=== PATIENT | male | born 1960 | race Caucasian/White ===

== ENCOUNTER → 2016-08-19 | Outpatient (CLI) | payer MEDICARE ==
--- NOTE | 2016-08-19 09:12 | US ---
EXAMINATION TYPE: US kidneys/renal and bladder DATE OF EXAM: 08/19/2016 8:38 AM COMPARISON: CT CLINICAL HISTORY: R31.9 hematuria. 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 Diminutive left kidney. Mild hydronephrosis seen.
--- NOTE | 2016-08-19 09:39 | US ---
EXAMINATION TYPE: US prostate transrectal DATE OF EXAM: 08/19/2016 8:57 AM COMPARISON: NONE CLINICAL HISTORY: N40.1 BPH. BPH This examination was performed using the transrectal probe. EXAM MEASUREMENTS: Gland Size: 4.9 x 2.1 x 4.4cm Volume: 23.5ml Predicted PSA: 2.82 Actual PSA (if available): not available, no PSA written on patient's order, called office, no answer Slightly enlarged, heterogeneous gland without any definite masses seen at this time IMPRESSION: No suspicious prostate lesion identified. Correlate with the actual PSA. Predicted PSA = volume x 0.12 ng/ml Calculated Volume = 0.5236 x L x W x H
[2016-08-19 11:35] LABS: Appearance,Urine Clear (Clear); Bilirubin,Urine Negative (Negative); Glucose,Urine (UA) Negative (Negative); Ketones,Urine Negative (Negative); Leukocyte Esterase,Urine Negative (Negative); Nitrite,Urine Negative (Negative); Protein,Urine Negative (Negative); Specific Gravity,Urine 1.001 (1.001-1.035); UA Billing (MACRO vs. MICRO) CHEM; Urobilinogen,Urine <2.0 mg/dL (<2.0)
== END | disposition home or self-care (01) ==
LOC: EEVIPCON 08:07 → RADUSMAIN 08:07
PROVIDERS: ATTEND Internal Medicine
DX: N13.30 Unspecified hydronephrosis (principal); N27.0 Small kidney, unilateral; N40.1 Benign prostatic hyperplasia with lower urinary tract symptoms; R30.0 Dysuria
CPT/HCPCS: 76770; 76872; 81003

== ENCOUNTER → 2016-11-16 | Outpatient (CLI) | payer MEDICARE ==
[2016-11-16 09:44] LABS: ALT 30 U/L (21-72); AST 23 U/L (17-59); Cholesterol 211 mg/dL (<200); HDL Cholesterol 41 mg/dL (40-60)
== END | disposition home or self-care (01) ==
LOC: LABWHC1 08:47
PROVIDERS: ATTEND Internal Medicine Cardiovascular Disease
DX: E78.2 Mixed hyperlipidemia (principal)
CPT/HCPCS: 36415; 80061; 84450; 84460

== ENCOUNTER → 2017-12-09 | Outpatient (CLI) | payer OTHER ==
--- NOTE | 2017-12-10 19:38 | MR ---
EXAMINATION TYPE: MR thoracic spine wo con DATE OF EXAM: 12/09/2017 COMPARISON: NONE HISTORY: 57-year-old male New pain in thoracic spine TECHNIQUE: Multiplanar, multisequence images of the thoracic spine were obtained without IV contrast. FINDINGS: There is metal hardware artifact relating to T10-T12 posterior and interbody fusion. There is an acce ntuated kyphosis at this level. The spinal canal is completely obscured secondary to these artifacts along these levels. Vertebral body heights are otherwise preserved and alignment is maintained. Mild to moderate degenerative disc disease throughout the mid to lower thoracic spine characterized b y mild disc desiccation and variable mild to moderate disc space narrowing. Small disc protrusions ar e also present. Facet arthropathy particularly in the upper thoracic spine. On the left, changes result in moderate neuroforaminal stenosis at T1-T2 and T2-T3, mild at T3-T4. Th e T10-T12 neuroforamen are not assessed. On the right, changes within moderate neuroforaminal stenosis from T1 through T4 levels. Again, the T 10-T12 neuroforamen are not assessed. Conus medullaris is normal. Moderate degenerative disc disease within the cervical spine with disc osteophyte complexes particula rly from C4-C6 levels. At C4-C5, disc osteophyte complex abuts and slightly indents the ventral cord injuring to a mild spinal canal stenosis. At T5-T6, there is a small right paracentral protrusion that minimally indents the ventral cord but d oes not cause any significant spinal canal stenosis. At T6-T7, there is a right paracentral disc protrusion without significant spinal canal stenosis. At T7-T8, there is a right paracentral disc extrusion with superior migration of disc material and a 10 x 10 mm sequestered fragment along the right paramedian posterior margin of the T7 vertebral body. This abuts the ventral cord with slight cord indentation, series 901 axial image 30. No significant spinal canal stenosis. At T8-T9, tiny central disc protrusion min abutting the ventral cord without canal stenosis. At T9-T10, artifact limit assessment. Possible right paracentral disc protrusion with annular fissure , refer to series 701 sagittal image 8. No prevertebral or paravertebral soft tissue abnormality seen. The spleen appears enlarged measuring 14.1 cm on the coronal series. IMPRESSION: 1. Posterior and interbody fusion changes from T10 through T12 levels with accentuated kyphosis here. These levels are nondiagnostic. At the level above, T9-T10, there may be a right paracentral disc pr otrusion with annular fissure. No reynaldo canal compromise is evident. 2. Facet arthropathy within the upper thoracic spine causing moderate neuroforaminal narrowing from T 1 through T3 levels on both sides and T3-T4 on the right. 3. At T7-T8, there is a right paracentral disc extrusion with superior migration of disc material res ulting in a 1 x 1 cm sequestered disc fragment along the right paramedian posterior margin of the T7 vertebral body. This abuts and slightly indents the ventral cord but does not cause significant spina l canal stenosis or cord compression. 4. A few additional small disc protrusions as outlined above. Again, no reynaldo spinal canal stenosis.
== END | disposition home or self-care (01) ==
LOC: RADMRIMAIN 07:26
PROVIDERS: ATTEND Physical Medicine & Rehabilitation
DX: M99.72 Connective tissue and disc stenosis of intervertebral foramina of thoracic region (principal); M51.24 Other intervertebral disc displacement, thoracic region; M46.94 Unspecified inflammatory spondylopathy, thoracic region; Z98.1 Arthrodesis status
CPT/HCPCS: 72146

== ENCOUNTER → 2017-12-09 | Outpatient (CLI) | payer MEDICARE ==
[2017-12-09 09:27] LABS: ALT 27 U/L (21-72); AST 21 U/L (17-59); Cholesterol 196 mg/dL (<200); HDL Cholesterol 38 mg/dL (40-60); LDL Cholesterol,Calculated 101 mg/dL (0-99); Triglycerides 286 mg/dL (<150)
== END | disposition home or self-care (01) ==
LOC: LABWHC1 08:34
PROVIDERS: ATTEND Internal Medicine Cardiovascular Disease
DX: E78.2 Mixed hyperlipidemia (principal)
CPT/HCPCS: 36415; 80061; 84450; 84460

== ENCOUNTER → 2018-01-20 | Outpatient (CLI) | payer OTHER ==
--- NOTE | 2018-01-20 10:13 | MR ---
EXAMINATION TYPE: MR thoracic spine wo/w con DATE OF EXAM: 01/20/2018 COMPARISON: Previous study dated 12/09/2017 HISTORY: Back pain CONTRAST: Standard multiplanar, multisequence MRI departmental protocol utilizing 8.5 mL intravenous Gadavist g adolinium contrast. FINDINGS: There has been a previous interpedicular fusion at T10, T11 and T12. This is causing signif icant geometric distortion in the axial images at these levels are nondiagnostic as are the sagittal images. The remainder of the spine, vertebral body height and alignment are maintained. No fractures are seen . Cord signal is maintained. There is mild intervertebral foraminal narrowing bilaterally at T1, T2 and T3. There is a small right paracentral disc protrusion present at T5-6, unchanged from previous. At C6-7 there is a more moderate right paracentral disc protrusion is more apparent than on the previ ous examination and may have progressed. This causing deformity of the thecal sac without definite co rd contact. His causing some narrowing of the right intervertebral foramina at this level. No other d efinite discal protrusions are seen. IMPRESSION: 1. POSTSURGICAL CHANGE. 2. MULTILEVEL INTERVERTEBRAL FORAMINAL NARROWING. 3. RIGHT PARACENTRAL DISC PROTRUSION, C5-6 AND C6-7. THE LESION AT C6-7 MAY HAVE PROGRESSED FROM THE PREVIOUS STUDY.
== END | disposition home or self-care (01) ==
LOC: RADMRIMAIN 07:07
PROVIDERS: ATTEND Physical Medicine & Rehabilitation
DX: M99.72 Connective tissue and disc stenosis of intervertebral foramina of thoracic region (principal); M51.24 Other intervertebral disc displacement, thoracic region; M50.222 Other cervical disc displacement at C5-C6 level; Z98.1 Arthrodesis status
CPT/HCPCS: 82565; 72157; A9581

== ENCOUNTER → 2018-07-10 | Outpatient (CLI) | payer MEDICARE ==
--- NOTE | 2018-07-10 13:10 | US ---
EXAMINATION TYPE: US kidneys/renal and bladder DATE OF EXAM: 07/10/2018 COMPARISON: 08/19/2016 CLINICAL HISTORY: R30.0 Dysuria, R31.9 Hematuria. Dysuria, hematuria. Hx ectopic left kidney in righ t lower quadrant. EXAM MEASUREMENTS: Right Kidney: 10.6 x 5.4 x 6.0 cm Left Kidney: 7.2 x 4.7 x 4.4 cm Post Void Residual Volume: 9.9 mL Ectopic left kidney Right Kidney: Area of mixed echogenicity seen upper pole: 2.3 x 2.0 x 1.6 cm Left Kidney: Hypoechoic area seen lower pole: 1.7 x 1.5 x 1.4 cm. ?Minimal hydro. Bladder: Appears anechoic. Bilateral Jets seen: Yes Normal Post Void Residual: Yes The urinary bladder is anechoic. Bilateral ureteral jets are seen. IMPRESSION: 1. Left kidney is been reported to be ectopic in position by previous CT scan. There is a 1.7 cm hypo echoic lesion unchanged in position from the prior exam. Mild left hydronephrosis also suggested. 2. There is an area of mixed echogenicity within the upper pole the right kidney is indeterminate may represent an isolated dilated calyx and recommend correlation with CT scan. This is new from the tanna or exam. 3 there is persistent mild left hydronephrosis. No definite calculi.
== END | disposition home or self-care (01) ==
LOC: RADUSWWP 12:08
PROVIDERS: ATTEND Internal Medicine
DX: N28.9 Disorder of kidney and ureter, unspecified (principal); R30.0 Dysuria; R31.9 Hematuria, unspecified; Z88.5 Allergy status to narcotic agent
CPT/HCPCS: 76770

== ENCOUNTER → 2018-08-17 | Outpatient (CLI) | payer MEDICARE ==
--- NOTE | 2018-08-17 12:57 | CT ---
EXAMINATION TYPE: CT abdomen pelvis wo/w con DATE OF EXAM: 08/17/2018 COMPARISON: CT abdomen pelvis January 11, 2016 HISTORY: Right renal colic. CT DLP: 1908 mGycm, Automated Exposure Control for Dose Reduction was Utilized. CONTRAST: CT scan of the abdomen and pelvis is performed with oral and without and with IV Contrast, patient in jected with 100 mL of Isovue 300. FINDINGS: LUNG BASES: No significant abnormality is appreciated. LIVER/GB: No significant abnormality is appreciated. PANCREAS: No significant abnormality is seen. SPLEEN: No significant abnormality is seen. ADRENALS: No significant abnormality is seen. KIDNEYS: Left kidney is not in region of left kidney bed. Right kidney shows no calculi on noncontras t images. Postcontrast images show cortical medullary uptake and excretion without hydronephrosis or concerning solid or cystic renal mass. There is redemonstration of right lower quadrant left kidney w ith areas of cortical scarring. No nephrolithiasis. There is 1.3 cm exophytic simple appearing cyst a nteriorly image 51 series 6 increased in size from prior. No hydronephrosis or new concerning mass is noted. BOWEL: Oral contrast reaches level of cecum. No suspicious small or large bowel dilatation. PROSTATE/SEMINAL VESICLES: Stable left pelvic phlebolith. LYMPH NODES: No greater than 1cm abdominal or pelvic lymph nodes are appreciated. OSSEOUS STRUCTURES: Postsurgical change to the lower thoracic spine is redemonstrated. OTHER: No significant additional abnormality is seen. IMPRESSION: Ectopic left kidney redemonstrated. No renal calculi or hydronephrosis seen bilaterally. No suspicious finding seen to account for patient's symptoms of right-sided flank pain.
== END | disposition home or self-care (01) ==
LOC: RADCTMAIN 10:19
PROVIDERS: ATTEND Urology
DX: R10.9 Unspecified abdominal pain (principal); Z88.5 Allergy status to narcotic agent
CPT/HCPCS: 74178; Q9967 ×2

== ENCOUNTER 2019-06-16 06:16 | Observation (INO) | payer MEDICARE ==
[2019-06-16 06:28] VITALS: RESP 18
[2019-06-16] MEDS ORDERED: ONDANSETRON 4 MG/2 ML VIAL IVP STA (06:35)
[2019-06-16] MEDS ORDERED: HYDROmorphone 0.5 MG/0.5 ML SYRINGE IVP STA (06:35)
[2019-06-16] MEDS ORDERED: SODIUM CHLORIDE 0.9% 1,000 ML IV ONE (06:36)
[2019-06-16] MEDS ORDERED: CLINDAMYCIN 600 MG in DEXTROSE 5% IN WATER 50 ML IVPB STA ×2 (06:37)
[2019-06-16 06:56] LABS: Basophils % (A) 0 %; Eosinophils # (A) 0.3 k/uL (0-0.7); Eosinophils % (A) 1 %; HCT 41.9 % (39.0-53.0); Lymphocytes # (A) 1.1 k/uL (1.0-4.8); Lymphocytes % (A) 6 %; MCH 30.3 pg (25.0-35.0); MCHC 33.4 g/dL (31.0-37.0); MCV 90.5 fL (80.0-100.0); Mean Platelet Volume 7.6; Monocytes # (A) 0.8 k/uL (0-1.0); Monocytes % (A) 4 %; Neutrophils % (A) 87 %; Platelet Count 322 k/uL (150-450); RBC 4.63 m/uL (4.30-5.90); RDW 12.7 % (11.5-15.5); WBC 18.3 k/uL (3.8-10.6)
[2019-06-16 07:16] LABS: ALT 13 U/L (4-49); AST 25 U/L (17-59); African American GFR (CKD) >90 (>60 ml/min/1.73 sqM); Albumin 4.8 g/dL (3.5-5.0); Alkaline Phosphatase 68 U/L (38-126); Anion Gap 12 mmol/L; Blood Urea Nitrogen 13 mg/dL (9-20); Calcium 9.6 mg/dL (8.4-10.2); Carbon Dioxide 22 mmol/L (22-30); Chloride 103 mmol/L (98-107); Glucose 173 mg/dL (74-99); Non-African American GFR(CKD) >90 (>60 ml/min/1.73 sqM); Sodium 137 mmol/L (137-145); Total Bilirubin 0.9 mg/dL (0.2-1.3); Total Protein 8.2 g/dL (6.3-8.2)
[2019-06-16 07:18] LABS: Potassium 4.4 mmol/L (3.5-5.1)
[2019-06-16] MEDS ORDERED: ACETAMINOPHEN TAB 500 MG TAB PO STA (07:23)
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
[2019-06-16] MEDS ORDERED: HYDROmorphone 1 MG/ML 1 ML SYRINGE IVP STA (07:57)
[2019-06-16] MEDS ORDERED: KETOROLAC 30 MG/ML 1 ML VIAL IVP STA (07:57)
[2019-06-16] MEDS ORDERED: NALOXONE 0.4 MG/ML 1 ML VIAL IV PRN (07:59)
[2019-06-16] MEDS ORDERED: KETOROLAC 30 MG/ML 1 ML VIAL IVP PRN (07:59)
[2019-06-16] MEDS ORDERED: HYDROmorphone 1 MG/ML 1 ML SYRINGE IVP PRN (07:59)
[2019-06-16] MEDS ORDERED: ACETAMINOPHEN TAB 325 MG TAB PO PRN (07:59)
[2019-06-16] MEDS ORDERED: ONDANSETRON 4 MG/2 ML VIAL IVP PRN (07:59)
[2019-06-16] MEDS: HYDROmorphone 0.5 MG/0.5 ML SYRINGE IVP PRN ×2 (10:32→15:53)
[2019-06-16] MEDS ORDERED: CLINDAMYCIN 600 MG in DEXTROSE 5% IN WATER 50 ML IVPB SCH ×2 (12:00)
[2019-06-16] MEDS ORDERED: ALPRAZolam 0.25 MG TAB PO PRN (12:34)
[2019-06-16] MEDS ORDERED: TEMAZEPAM 15 MG CAP PO PRN (12:34)
[2019-06-16] MEDS ORDERED: DEXAMETHASONE SOD PHOSPHATE 10 MG/ML 1 ML VIAL IV STA (12:43)
--- NOTE | 2019-06-16 13:08 | XR ---
EXAMINATION TYPE: XR chest 1V portable DATE OF EXAM: 06/16/2019 Comparison: None Clinical History: 58-year-old male CHF Findings: Partially visualized right shoulder arthroplasty. Posterior and interbody fusion hardware throughout the lumbar junction. Heart normal size. Aorta and pulmonary vasculature within normal limits. No cons olidation or pleural effusion. Impression: No acute cardiopulmonary process.
[2019-06-16] MEDS: AMPICILLIN-SULBACTAM 3 GM in SODIUM CHLORIDE 0.9% 100 ML IVPB SCH ×3 (14:07→23:28)
[2019-06-16] MEDS: HYDROcodone/APAP 10-325MG 1 EACH TAB PO PRN (17:28)
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
[2019-06-16] MEDS ORDERED: LIDOCAINE 5% PATCH TOPICAL PRN (20:38)
[2019-06-16] MEDS ORDERED: LORazepam 1 MG TAB PO PRN (20:38)
[2019-06-16] MEDS ORDERED: TAMSULOSIN 0.4 MG CAP.ER.24H PO SCH (21:00)
[2019-06-16] MEDS ORDERED: PRAVASTATIN SODIUM 40 MG TAB PO SCH (21:00)
[2019-06-16] MEDS ORDERED: HEPARIN SODIUM,PORCINE 5,000 UNIT/ML 1 ML VIAL SQ SCH (21:00)
[2019-06-16] MEDS: BACLOFEN 10 MG TAB PO SCH (21:59)
--- NOTE | 2019-06-17 00:21 | P.CONS ---
History of Present Illness - Reason for Consult Consult date: 06/16/19 jaw cellulitis Requesting physician: Froy Felix - Chief Complaint left jaw pain and swelling x 1 day - History of Present Illness Patient is a 58-year male presenting to the ER early this morning with chief complaints of left-sided facial pain and swelling that apparently started this morning patient did mention that few days ago he did have a chipped tooth on the left side of his jaw he did have some discomfort but this morning he noted to have significant pain and swelling of the left side of the jaw and the face. Described the pain to be throbbing with intensity almost on the left hand with no radiation patient denies having any difficulty swallowing denies having any nausea no vomiting no abdominal pain or any diarrhea on arrival to the ER but did have fever 100.3 white count was elevated 18.3 patient did have a face CT which shows extensive cellulitis along the left side of the face extending from the jaw to the intraorbital region valgum is greatest in the left premaxillary and perimandibular region no discrete fluid collection patient has been admitted hospital he was started on Unasyn infectious was consulted for further recommendation regarding antibiotic therapy. 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) History of Any Multi-Drug Resistant Organisms: None Reported Past Surgical History: Back Surgery, Orthopedic Surgery Additional Past Surgical History / Comment(s): facial surgery, r shoulder replacement Past Psychological History: Anxiety, Depression Smoking Status: Former smoker Past Alcohol Use History: None Reported Past Drug Use History: Marijuana Medications and Allergies Home Medications Medication Instructions Recorded Confirmed Type Baclofen [Lioresal] 10 - 30 mg PO TID 01/11/16 06/16/19 History DULoxetine HCL [Cymbalta] 60 mg PO DAILY 01/11/16 06/16/19 History HYDROcodone/APAP 10-325MG [[place] 1 - 2 tab PO Q6H PRN 01/11/16 06/16/19 History 10-325] Lidocaine 5% Patch [Lidoderm] 1 patch TOPICAL DAILY PRN 01/11/16 06/16/19 History DULoxetine HCL [Cymbalta] 30 mg PO DAILY 06/16/19 06/16/19 History LORazepam [Ativan] 2 mg PO TID PRN 06/16/19 06/16/19 History Multivitamins, Thera [Multivitamin 1 tab PO DAILY 06/16/19 06/16/19 History (formulary)] Naproxen Sodium [Aleve] 220 - 440 mg PO DAILY PRN 06/16/19 06/16/19 History Pravastatin Sodium [Pravachol] 40 mg PO HS 06/16/19 06/16/19 History Tamsulosin [Flomax] 0.8 mg PO HS 06/16/19 06/16/19 History amLODIPine [Norvasc] 5 mg PO DAILY 06/16/19 06/16/19 History Allergies Allergy/AdvReac Type Severity Reaction Status Date / Time morphine AdvReac Vomiting Verified 06/16/19 13:44 Physical Exam Vitals: Vital Signs Temp Pulse Pulse Pulse Resp BP BP 06/16/19 21:15 97.9 F 77 18 168/89 06/16/19 12:50 98.3 F 77 18 131/82 06/16/19 09:37 98.0 F 89 18 130/80 06/16/19 08:39 99.1 F 79 18 163/65 06/16/19 06:24 100.3 F H 110 H 18 142/94 Pulse Ox 06/16/19 21:15 97 06/16/19 12:50 98 06/16/19 09:37 97 06/16/19 08:39 97 06/16/19 06:24 98 Intake and Output 06/16/19 06/16/19 06/17/19 14:59 22:59 06:59 Intake Total 600 200 Output Total 1 Balance 600 199 Intake: Oral 600 200 Output: Urine 1 Other: # Voids 1 1 Weight 81.647 kg GENERAL DESCRIPTION: Middle-aged male lying in bed, no distress. No tachypnea or accessory muscle of respiration use. HEENT: Shows Pallor , no scleral icterus. Oral mucous membrane is dry. Patient did have a poor dental hygiene with chipped excoriated teeth with surrounding gingivitis swelling and induration of the left lower jaw NECK: Trachea central, no thyromegaly. LUNGS: Unlabored breathing. Clear to auscultation anteriorly. No wheeze or crackle. HEART: S1, S2, regular rate and rhythm. ABDOMEN: Soft, no tenderness , guarding or rigidity EXTREMITIES: No edema of feet. SKIN: No rash, no masses palpable. NEUROLOGICAL: The patient is awake, alert, oriented x3, mood and affect normal Results CBC & Chem 7: 06/16/19 06:43 06/16/19 06:43 Labs: Abnormal Lab Results - Last 24 Hours (Table) 06/16/19 06/16/19 Range/Units 06:43 06:43 WBC 18.3 H (3.8-10.6) k/uL Neutrophils # 16.0 H (1.3-7.7) k/uL Glucose 173 H (74-99) mg/dL Assessment and Plan Assessment: 1-patient with extensive cellulitis of the left jaw likely secondary to infected tooth and will likely need to cover for the oral floor of the mouth which is usually a combination of gram-positive anaerobes and anaerobes (1) Dental abscess Current Visit: Yes Status: Acute Code(s): K04.7 - PERIAPICAL ABSCESS WITHOUT SINUS SNOMED Code(s): 935881448 Plan: 1-await surgical removal of the infected tooth and deep cultures 2-Unasyn 3 g every 6 hours We will follow on clinical condition and cultures to further adjust medication if needed Thank you for this consultation we will follow the patient along with you
[2019-06-17] MEDS: HYDROcodone/APAP 10-325MG 1 EACH TAB PO PRN ×2 (03:33→09:59)
[2019-06-17] MEDS: AMPICILLIN-SULBACTAM 3 GM in SODIUM CHLORIDE 0.9% 100 ML IVPB SCH ×2 (05:24→11:58)
[2019-06-17] MEDS ORDERED: PANTOPRAZOLE 40 MG TABLET PO SCH (07:30)
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
[2019-06-17] MEDS: BACLOFEN 10 MG TAB PO SCH (08:13)
[2019-06-17 08:14] VITALS: BP 162/88; PULSE 89; TEMP 98.1
[2019-06-17] MEDS ORDERED: DULoxetine HCL 30 MG CAPSULE.DR PO SCH (09:00)
[2019-06-17] MEDS ORDERED: amLODIPine 10 MG TAB PO SCH (09:00)
[2019-06-17] MEDS ORDERED: DULoxetine HCL 60 MG CAPSULE.DR PO SCH (09:00)
[2019-06-17 09:57] LABS: Basophils % (A) 0 %; Eosinophils % (A) 0 %; HGB 13.5 gm/dL (13.0-17.5); Lymphocytes # (A) 1.6 k/uL (1.0-4.8); Lymphocytes % (A) 10 %; MCH 30.3 pg (25.0-35.0); MCHC 32.9 g/dL (31.0-37.0); Mean Platelet Volume 7.9; Monocytes # (A) 0.8 k/uL (0-1.0); Monocytes % (A) 5 %; Neutrophils # (A) 13.1 k/uL (1.3-7.7); Neutrophils % (A) 83 %; Platelet Count 353 k/uL (150-450); RBC 4.46 m/uL (4.30-5.90); RDW 12.7 % (11.5-15.5); WBC 15.8 k/uL (3.8-10.6)
[2019-06-17 10:18] LABS: African American GFR (CKD) >90 (>60 ml/min/1.73 sqM); Anion Gap 12 mmol/L; Blood Urea Nitrogen 21 mg/dL (9-20); Calcium 9.8 mg/dL (8.4-10.2); Carbon Dioxide 21 mmol/L (22-30); Chloride 107 mmol/L (98-107); Glucose 109 mg/dL (74-99); Non-African American GFR(CKD) >90 (>60 ml/min/1.73 sqM); Potassium 4.2 mmol/L (3.5-5.1); Sodium 140 mmol/L (137-145)
[2019-06-17] MEDS ORDERED: AMOXIC-POT CLAV 875-125MG 1 EACH TAB PO SCH (11:45)
--- NOTE | 2019-06-17 13:58 | PN ---
PROGRESS NOTE DATE OF SERVICE: 06/17/2019 REASON FOR FOLLOWUP: Jaw infection with infected tooth. INTERVAL HISTORY: The patient is currently afebrile, has been breathing comfortably. The patient denies having any chest pain or shortness of breath. No nausea, no abdominal pain. Pain to the left upper jaw has slightly decreased. PHYSICAL EXAMINATION: Blood pressure is 162/88 with a pulse of 89, temperature 98.1 he is 98% on room air. General description is a middle-aged male up in the room in no distress. HEENT: Examination the left-sided just swelling slightly decreased. LUNGS: Unlabored breathing. Clear to auscultation anteriorly. HEART: S1, S2. Regular rate and rhythm. ABDOMEN: Soft, no tenderness. LABS: Hemoglobin is 13.5, white count 15.8, creatinine 0.68. Blood culture negative. DIAGNOSTIC IMPRESSION AND PLAN: Patient with a left upper jaw infected with secondary cellulitis. Patient's need surgical extraction for the patient is to follow up with the dentist in the outpatient setting today. If at the time of the surgical extraction, he was noted to have significant inflammatory changes, he needs to go back to the hospital for IV antibiotic therapy. This was explained in detail with the patient and to the nurse practitioner working on the discharge. Continue supportive care. MMODL / IJN: [id number] /
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
== END 2019-06-17 13:24 | disposition home or self-care (01) ==
LOC: EC 06:16 → 6NMEDSUR 07:56 → INTOOBSV 07:56 → UNDODISIN 06-17 13:24
PROVIDERS: ADMIT Internal Medicine; ATTEND Internal Medicine
DX: J01.00 Acute maxillary sinusitis, unspecified (principal); K12.2 Cellulitis and abscess of mouth; K04.7 Periapical abscess without sinus; K02.9 Dental caries, unspecified; E78.5 Hyperlipidemia, unspecified; I10 Essential (primary) hypertension; F32.9 Major depressive disorder, single episode, unspecified; F41.9 Anxiety disorder, unspecified; M19.90 Unspecified osteoarthritis, unspecified site; G89.29 Other chronic pain; M54.9 Dorsalgia, unspecified; Z79.1 Long term (current) use of non-steroidal anti-inflammatories (NSAID); Z79.891 Long term (current) use of opiate analgesic; Z79.899 Other long term (current) drug therapy; Z88.5 Allergy status to narcotic agent; Z87.81 Personal history of (healed) traumatic fracture; Z98.1 Arthrodesis status; Z87.01 Personal history of pneumonia (recurrent); Z96.611 Presence of right artificial shoulder joint; Z87.820 Personal history of traumatic brain injury; Z87.891 Personal history of nicotine dependence
CPT/HCPCS: 96376 ×2; 96366 ×3; 96372; 96375 ×2; 96368; 96365; 99285; 36415; 80053; 80048; 83605; 85025 ×2; 87040; 71045; 70487; G0378 ×2; J1644; J1100; J2405; J1885; J1170 ×2; J0295 ×2; Q9967

== ENCOUNTER → 2020-02-12 | Outpatient (CLI) | payer OTHER ==
--- NOTE | 2020-02-12 10:07 | XR ---
EXAMINATION TYPE: XR thoracic spine 2V DATE OF EXAM: 02/12/2020 COMPARISON: 02/22/2010 HISTORY: Evaluate leads TECHNIQUE: 3 views submitted FINDINGS: Stimulator device is seen with 2 leads seen overlying the thoracic spine on the AP view the proximal level of T7-T8. Multilevel hypertrophic and degenerative changes are seen and there is stable postsur gical changes in the lower thoracic spine near the thoracolumbar junction. IMPRESSION: 1. Scoliosis with postoperative and degenerative change. 2. Stimulator device with the leads as discussed above extending to the approximate levels T7 or T8.
== END | disposition home or self-care (01) ==
LOC: RADXRMAIN 09:33
PROVIDERS: ATTEND Anesthesiology
DX: Z45.49 Encounter for adjustment and management of other implanted nervous system device (principal); M41.9 Scoliosis, unspecified
CPT/HCPCS: 72070

== ENCOUNTER → 2021-01-15 | Outpatient (CLI) | payer MEDICARE ==
[2021-01-15 16:58] LABS: ALT 14 U/L (4-49); AST 23 U/L (17-59); African American GFR (CKD) >90 (>60 ml/min/1.73 sqM); Albumin 4.9 g/dL (3.5-5.0); Alkaline Phosphatase 54 U/L (38-126); Anion Gap 11 mmol/L; Blood Urea Nitrogen 10 mg/dL (9-20); Calcium 9.6 mg/dL (8.4-10.2); Carbon Dioxide 24 mmol/L (22-30); Chloride 104 mmol/L (98-107); Glucose 95 mg/dL (74-99); Non-African American GFR(CKD) >90 (>60 ml/min/1.73 sqM); Potassium 4.5 mmol/L (3.5-5.1); Sodium 139 mmol/L (137-145); Total Bilirubin 0.6 mg/dL (0.2-1.3); Total Protein 8.2 g/dL (6.3-8.2)
--- NOTE | 2021-01-15 19:16 | US ---
EXAMINATION TYPE: US kidneys/renal and bladder DATE OF EXAM: 01/15/2021 COMPARISON: Prior renal ultrasound 07/10/2018, CT 08/17/2018 CLINICAL HISTORY: Hematuria R31.9, R10.9 RT LT flank pain. 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 atrophic. cystic area = 2.8 x 2.3 x 2.8cm, appears simple cystic. Th ere is mild caliectasis noted at the lower pole the left kidney as noted on prior exam Bladder: wnl Bilateral Jets seen: yes Cortical medullary differentiation is maintained. No nephrolithiasis is seen. No masses are identifi ed. The urinary bladder is anechoic. Bilateral ureteral jets are seen. IMPRESSION: Mild hydronephrosis right kidney, lower pole left kidney
== END | disposition home or self-care (01) ==
LOC: RADUSWWP 15:52
PROVIDERS: ATTEND Internal Medicine
DX: N13.30 Unspecified hydronephrosis (principal)
CPT/HCPCS: 76770; 80053; 84153

== ENCOUNTER → 2021-03-31 | Outpatient (CLI) | payer MEDICARE ==
--- NOTE | 2021-03-31 10:18 | CT ---
EXAMINATION TYPE: CT abdomen pelvis wo con DATE OF EXAM: 03/31/2021 COMPARISON: 08/17/2018 HISTORY: Unspecified hydronephrosis CT DLP: 744 mGycm Automated exposure control for dose reduction was used. TECHNIQUE: Helical acquisition of images was performed from the lung bases through the pelvis. FINDINGS: LUNG BASES: No significant abnormality is appreciated. LIVER/GB: No significant abnormality is appreciated. PANCREAS: No significant abnormality is seen. SPLEEN: No significant abnormality is seen. ADRENALS: No significant abnormality is seen. KIDNEYS: There is absence of the left kidney. Right kidney demonstrates mild pelvic caliectasis but n o nephrolithiasis. There is an additional kidney seen within the pelvis on the right demonstrating mi ld pelvocaliectasis in the simple appearing cyst. No calcifications identified. Bladder demonstrates mild wall thickening and there is mild prostate hypertrophy. ADENOPATHY: None visualized. OSSEOUS STRUCTURES: Hypertrophic and degenerative change of the spine with postsurgical changes. Mul tilevel facet arthropathy. Chronic appearing deformity of the right SI joint; may be postsurgical. Ar thropathy of the hips. BOWEL: No significant abnormality is seen. OTHER: Fat-containing periumbilical hernia. Aorta of normal caliber. No free fluid. Metallic device i n the posterior soft tissues of the right flank likely related to stimulator device with intrathecal catheter. IMPRESSION: 1. Ectopic kidney within the pelvis as noted above is stable from prior exam. There is no nephrolithi asis. Mild pelvic caliectasis of both kidneys.
== END | disposition home or self-care (01) ==
LOC: RADCTMAIN 09:31
PROVIDERS: ATTEND Urology
DX: Q63.2 Ectopic kidney (principal); N28.89 Other specified disorders of kidney and ureter
CPT/HCPCS: 74176

== ENCOUNTER 2021-05-19 10:00 | Emergency (ER) | payer MEDICARE, OTHER ==
[2021-05-19 10:06] VITALS: RESP 18
--- NOTE | 2021-05-19 11:03 | XR ---
EXAMINATION TYPE: XR shoulder complete RT DATE OF EXAM: 05/19/2021 CLINICAL HISTORY: pain TECHNIQUE: Three views of the right shoulder are obtained. COMPARISON: None FINDINGS: There is evidence of prior proximal humeral prosthesis. There is lucency along the stem com ponent which could reflect loosening or underlying periprosthetic infection. I do not see definite ev idence for fracture. There is mild heterotopic ossification and bony fragmentation proximally. IMPRESSION: 1. As above
--- NOTE | 2021-05-19 11:11 | ED ---
General Adult HPI - General Chief complaint: Extremity Injury, Upper Stated complaint: shoulder pain Time Seen by Provider: 05/19/21 10:09 Source: patient, family Mode of arrival: ambulatory Limitations: no limitations - History of Present Illness Initial comments: The patient is a 60-year-old male who presents to the emergency department with right shoulder pain. He had a shoulder replacement 12 years ago, and has not seen an orthopedic surgeon since his surgery. For the last 3 months, he has noticed increasing pain to the right shoulder. For the last 2 days, his symptoms have gotten substantially worse. His right shoulder is described as feeling numb and strange. He has significant pain radiating distally with numbness, tingling, and burning in all fingers and the forearm. He took 20 mg of [place], and this offered only minimal improvement to the pain. Pain is currently rated at a 10 out of 10. Reports significantly limited range of motion. Denies any known injuries to the shoulder and is unsure what could have brought this on. Onset/Timin -: days(s) Location: upper extremity (right shoulder) Radiation: distal Severity scale (1-10): 10 Quality: burning, stabbing, sharp, constant Consistency: constant Worsens with: movement Associated Symptoms: denies other symptoms - Related Data Home Medications Medication Instructions Recorded Confirmed Baclofen [Lioresal] 10 - 30 mg PO TID 01/11/16 06/16/19 DULoxetine HCL [Cymbalta] 60 mg PO DAILY 01/11/16 06/16/19 HYDROcodone/APAP 10-325MG [[place] 1 - 2 tab PO Q6H PRN 01/11/16 06/16/19 10-325] Lidocaine 5% Patch [Lidoderm 5% 1 patch TOPICAL DAILY PRN 01/11/16 06/16/19 Patch] DULoxetine HCL [Cymbalta] 30 mg PO DAILY 06/16/19 06/16/19 LORazepam [Ativan] 2 mg PO TID PRN 06/16/19 06/16/19 Multivitamins, Thera [Multivitamin 1 tab PO DAILY 06/16/19 06/16/19 (formulary)] Naproxen Sodium [Aleve] 220 - 440 mg PO DAILY PRN 06/16/19 06/16/19 Pravastatin Sodium [Pravachol] 40 mg PO HS 06/16/19 06/16/19 Tamsulosin [Flomax] 0.8 mg PO HS 06/16/19 06/16/19 amLODIPine [Norvasc] 5 mg PO DAILY 06/16/19 06/16/19 Previous Rx's Medication Instructions Recorded Amoxic-Pot Clav 875-125Mg 1 each PO Q12HR 10 Days #20 tab 06/17/19 [Augmentin 875-125] Allergies Allergy/AdvReac Type Severity Reaction Status Date / Time morphine AdvReac Vomiting Verified 05/19/21 10:06 Review of Systems ROS Statement: Those systems with pertinent positive or pertinent negative responses have been documented in the HPI. ROS Other: All systems not noted in ROS Statement are negative. 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 Absent: respiratory distress, wheezes, rales, rhonchi, stridor Cardiovascular Exam: Present: regular rate, normal rhythm, normal heart sounds. Absent: systolic murmur, diastolic murmur, rubs, gallop, clicks Right Shoulder Exam: Absent: full ROM Course Vital Signs 05/19/21 10:02 Temperature 98.1 F Pulse Rate 87 Respiratory 18 Rate Blood Pressure 188/91 Medical Decision Making - Medical Decision Making Xray of the right shoulder obtained due to increasing pain. X-ray reveals concern for loosening of the prosthesis versus infection. Infection less likely given that the patient has no fevers or chills. We'll refer the patient to orthopedics for follow-up after discharge. 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
[2021-05-19 12:02] VITALS: BP 180/90; PULSE 88; TEMP 98.2
== END 2021-05-19 12:02 | disposition home or self-care (01) ==
LOC: EC 10:00
DX: T84.098A Other mechanical complication of other internal joint prosthesis, initial encounter (principal); E78.5 Hyperlipidemia, unspecified; I10 Essential (primary) hypertension; F41.9 Anxiety disorder, unspecified; F32.A Depression, unspecified; F12.90 Cannabis use, unspecified, uncomplicated; Z88.5 Allergy status to narcotic agent; Z96.611 Presence of right artificial shoulder joint; X58.XXXA Exposure to other specified factors, initial encounter
CPT/HCPCS: 99283

== ENCOUNTER → 2021-07-30 | Outpatient (CLI) | payer MEDICARE ==
[2021-07-30 14:06] LABS: Basophils # (A) 0.06 X 10*3/uL (0.00-0.10); Basophils % (A) 0.8 %; Eosinophils # (A) 0.03 X 10*3/uL (0.04-0.35); Eosinophils % (A) 0.4 %; HCT 40.1 % (39.6-50.0); HGB 13.6 g/dL (13.0-17.0); Immature Grans, Automated 0.4 %; Lymphocytes # (A) 1.74 X 10*3/uL (0.90-5.00); MCH 31.2 pg (27.0-32.0); MCHC 33.9 g/dL (32.0-37.0); Mean Platelet Volume 10.5 fL (9.5-12.2); Monocytes # (A) 0.58 X 10*3/uL (0.20-1.00); Monocytes % (A) 7.7 %; NRBC Per 100 WBC 0 /100 WBCS (0.0-0.0); Neutrophils # (A) 5.13 X 10*3/uL (1.80-7.70); Neutrophils % (A) 67.7 %; Platelet Count 270 X 10*3/uL (140-440); RBC 4.36 X 10*6/uL (4.40-5.60); RDW 12.4 % (11.5-14.5); WBC 7.57 X 10*3/uL (4.50-10.00)
[2021-07-30 14:44] LABS: INR 0.97 (0.90-1.11)
[2021-07-30 18:48] LABS: African American GFR (CKD) 103.3 (60.0-200.0); Anion Gap 14.5 mmol/L (10.00-18.00); Blood Urea Nitrogen 16.9 mg/dL (9.0-27.0); Calcium 9.8 mg/dL (8.7-10.3); Carbon Dioxide 22.6 mmol/L (20.0-27.5); Non-African American GFR(CKD) 89.1 (60.0-200.0); Potassium 4.4 mmol/L (3.5-5.5)
== END | disposition home or self-care (01) ==
LOC: LABWHC1 09:32
PROVIDERS: ATTEND Internal Medicine
DX: Z01.812 Encounter for preprocedural laboratory examination (principal); I10 Essential (primary) hypertension; N40.0 Benign prostatic hyperplasia without lower urinary tract symptoms
CPT/HCPCS: 36415; 80048; 85025; 85610

== ENCOUNTER → 2021-12-07 | Outpatient (CLI) | payer MEDICARE, OTHER ==
--- NOTE | 2021-12-07 14:19 | CT ---
EXAMINATION TYPE: CT brain wo con DATE OF EXAM: 12/07/2021 COMPARISON: None HISTORY: Sinusitis, headache CT DLP: 1260 mGycm Automated exposure control for dose reduction was used. FINDINGS: Mild generalized degenerative change with no evidence of acute infarct or mass effect. There is low a ttenuation left basal ganglia remote infarct. Low attenuation within the left frontal lobe suggestive of encephalomalacia and previous ischemia. Faint low-attenuation in the white matter is nonspecific but suggestive of remote ischemic change. Craniocervical junction maintained. Sella turcica has a normal appearance. Calvarium is intact. There is a nasal septal deviation and a small mucous retention cyst within the left maxillary sinus. Orbit s are symmetric IMPRESSION: 1. Small mucous retention cyst within the left maxillary sinus. 2. Degenerative and nonspecific white matter changes most equivocal remote ischemia. 3. 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
== END | disposition home or self-care (01) ==
LOC: RADCTMAIN 13:53
PROVIDERS: ATTEND Internal Medicine
DX: I67.82 Cerebral ischemia (principal); G31.9 Degenerative disease of nervous system, unspecified; J34.1 Cyst and mucocele of nose and nasal sinus
CPT/HCPCS: 70450

== ENCOUNTER → 2022-01-18 | Outpatient (CLI) | payer MEDICARE ==
--- NOTE | 2022-01-18 11:58 | CT ---
EXAMINATION TYPE: CT sinus wo con DATE OF EXAM: 01/18/2022 COMPARISON: 06/26/2019 HISTORY: Sinusitis CT DLP: 581 mGycm. Automated Exposure Control for Dose Reduction was Utilized. TECHNIQUE: CT scan of the sinuses is performed without contrast, axial images are obtained, coronal r eformatted images are also reviewed. FINDINGS: The paranasal sinuses including the frontal, ethmoid, sphenoid, and maxillary sinuses bila terally are well-aerated without abnormal opacification. The ostiomeatal complex is patent bilateral ly on the coronal images. Dental artifact noted. There is a nasal septal deviation and small mucous recent tension cyst or poly p in the left maxillary sinus. Generalized degenerative changes noted intracranially. Orbits are subm itted Visualized portion of mastoid air cells show no abnormal opacification. The globes are intact bilate rally. IMPRESSION: 1. Small mucous retention cyst or polyp within the left maxillary sinus stable from prior exam and no other significant changes of sinusitis. 2. Nasal septal deviation..
== END | disposition home or self-care (01) ==
LOC: RADCTMAIN 11:22
PROVIDERS: ATTEND Otolaryngology
DX: J34.2 Deviated nasal septum (principal)
CPT/HCPCS: 70486

== ENCOUNTER 2022-08-03 11:06 | Day surgery (SDC) | payer MEDICARE ==
[2022-07-29 12:38] VITALS: BMI 31.1
[~2022-08-03 11:06] MED LIST: DEXAMETHASONE SOD PHOSPHATE 4 MG/ML 1 ML VIAL IV ONE; FAMOTIDINE 20 MG/2 ML VIAL IV PRN; HYDROmorphone 0.5 MG/0.5 ML SYRINGE IVP PRN; LACTATED RINGERS 1,000 ML IV SCH; LIDOCAINE 1% (10MG/ML) FOR IV START INTRADERMA PRN; ONDANSETRON 4 MG/2 ML VIAL IVP ONE
[2022-08-03] MEDS: OXYMETAZOLINE 0.05% NASL SPRAY 1 SPRAY BOTTLE ONE ×5 (12:12→12:55)
[2022-08-03] MEDS ORDERED: PROPOFOL 10 MG/ML 20 ML VIAL IV ONE (12:56)
[2022-08-03] MEDS ORDERED: fentaNYL (PF) 50 MCG/ML 2 ML AMP ONE (12:56)
[2022-08-03] MEDS ORDERED: ePHEDrine 50 MG/ML 1 ML VIAL ONE (12:56)
[2022-08-03] MEDS ORDERED: MIDAZOLAM 2 MG/2 ML VIAL ONE (12:56)
[2022-08-03] MEDS ORDERED: SUCCINYLCHOLINE CHLORIDE 200 MG/10 ML VIAL IV ONE (12:56)
[2022-08-03] MEDS ORDERED: PHENYLEPHRINE-0.9% NACL SYG 1,000 MCG/10 ML SYRINGE ONE (12:56)
[2022-08-03] MEDS ORDERED: LIDOCAINE 2% INJ 20 MG/ML (2 ML VIAL) ONE (12:56)
[2022-08-03] MEDS ORDERED: LIDOCAINE 2%-EPI 1:100,000 20 ML VIAL SUBMUCOSAL ONE ×2 (13:06)
[2022-08-03] MEDS ORDERED: BACITRACIN ZINC 500 UNIT/GM OINT 28.4 GM TUBE TOPICAL ONE ×2 (13:21→14:00)
--- NOTE | 2022-08-03 14:06 | P.OP ---
Date of Procedure: 08/03/22 Preoperative Diagnosis: Deviated nasal septum Inferior turbinate hypertrophy Chronic sinusitis Postoperative Diagnosis: Same Procedure(s) Performed: Septoplasty Outfractured and submucous resection of the inferior turbinates left sided endoscopic sinus surgery including left maxillary antrostomy with removal of tissue from the maxillary sinus Anesthesia: JV Surgeon: Bird Garcia Estimated Blood Loss (ml): 10 Pathology: other (Nasal septal bone and cartilage and sinus contents) Condition: stable Disposition: PACU Indications for Procedure: The 61-year-old white male with chronic nasal airway obstruction bilaterally right greater than left despite medical management as well as intermittent facial pain and pressure with CT showing small cyst or polyp in the left maxillary sinus Operative Findings: Nasal septum deviated to the right anteriorly to the left posteriorly inferior turbinates hypertrophy bilaterally obstruction of the left ostiomeatal complex with a large mucous retention cyst in the left maxillary sinus Description of Procedure: The patient was brought into the operative suite and placed in a supine position. The patient underwent induction of general anesthesia with oral endotracheal intubation without difficulty. The patient was prepped and draped in the usual aseptic fashion with the orbits in the operating field for monitoring to the case and the computed tomography scan was on the computer screen for review throughout the case. 1% lidocaine with 1 :100,000 epinephrine was infused submucosally into both sides of the nasal septum as well as the lateral nasal wall and anterior tips of the middle turbinates. While this was taking vasoconstrictive effect the inferior turbinates were infractured with Aurora elevator and partial submucous resection of the inferior turbinates was performed with a portion of the submucosal soft tissue and the inferior turbinate bone removed with Coblation device. The inferior turbinates were then outfractured with the Aurora elevator. A left hemitransfixion incision was then made with the mucoperichondrial and mucoperiosteal flap on the left elevated. The bony cartilaginous junction was disarticulated and the mucoperiosteal flap on the right was elevated. Bony nasal septal deformities were removed with Xiomara forceps and an inferior cartilaginous strip was removed leaving a full 1.5 cm caudal strut. Checking intranasally this corrected the nasoseptal deformities and the hemitransfixion incision was closed with a running 4-0 chromic suture. Full 0 endoscopic examination is performed bilaterally. Beginning on the left, the middle turbinate was medialized. The maxillary ostium was located with a ballpoint probe and an infundibulotomy was performed followed by uncinectomy. The maxillary antrostomy was enlarged at the expense of the anterior and posterior fontanelle taking care anteriorly not to injure the lacrimal bone. The maxillary sinus was evaluated with 30 and 70 endoscope .[Abnormal appearing tissue was removed from the maxillary sinus- there was a large cyst in the maxillary sinus which was removed with giraffe forceps under 30 endoscopic visualization. [Xerogel nasal dressing was placed in the middle meatus bilaterally under direct visualization]. Bilateral Land airway splints coated with bacitracin ointment were placed and sutured transseptally with a 4-0 nylon suture. The patient was suctioned in oral gastric fashion and was allowed to emerge from general anesthesia having tolerated procedure well and was extubated in the operating suite and transferred to the postoperative recovery area in satisfactory condition.
[2022-08-03 14:16] VITALS: TEMP 97.2
[2022-08-03] MEDS ORDERED: KETOROLAC 15 MG/ML 1 ML VIAL IVP ONE (14:30)
[2022-08-03 15:28] VITALS: RESP 20
[2022-08-03 16:04] VITALS: BP 143/88; PULSE 88
== END 2022-08-03 16:05 | disposition home or self-care (01) ==
LOC: OR 11:06
PROVIDERS: ATTEND Otolaryngology
DX: J34.2 Deviated nasal septum (principal); J34.3 Hypertrophy of nasal turbinates; J32.9 Chronic sinusitis, unspecified; J34.89 Other specified disorders of nose and nasal sinuses; I10 Essential (primary) hypertension; E78.5 Hyperlipidemia, unspecified; Z88.5 Allergy status to narcotic agent; Z98.890 Other specified postprocedural states; Z87.891 Personal history of nicotine dependence
CPT/HCPCS: 30520; 31267; 88305; 88300; J2250; J0330; J1100; J2405; J3010; J1885; J2370; J2704; J2001

== ENCOUNTER → 2022-12-02 | Outpatient (CLI) | payer MEDICARE ==
[2022-12-03 01:32] LABS: ALT 21 U/L (10-49); AST 18 U/L (14-35); Chol/HDL Ratio 5.08 Ratio; LDL Cholesterol,Calculated 66.8 mg/dL (0.0-131.0)
== END | disposition home or self-care (01) ==
LOC: LABWHC1 11:09
PROVIDERS: ATTEND Internal Medicine Interventional Cardiology
DX: E78.2 Mixed hyperlipidemia (principal)
CPT/HCPCS: 36415; 80061; 84450; 84460

== ENCOUNTER → 2023-05-30 | Outpatient (CLI) | payer OTHER ==
[2023-05-31 05:50] LABS: Serum Amphetamine Negative; Serum Barbiturates Negative; Serum Benzodiazepine Negative; Serum Cocaine Negative; Serum Methadone Negative; Serum Opiates Negative; Serum Phencyclidine Negative; Serum Propoxyphene Negative; Serum THC (Cannabis) Positive
== END | disposition home or self-care (01) ==
LOC: LABWHC1 14:03
PROVIDERS: ATTEND Physical Medicine & Rehabilitation
DX: G89.29 Other chronic pain (principal)
CPT/HCPCS: 36415; 80307

== ENCOUNTER 2024-03-05 09:43 | Day surgery (SDC) | payer MEDICARE ==
[2024-03-01 13:35] VITALS: BMI 30.1
[~2024-03-05 09:43] MED LIST changes: -DEXAMETHASONE SOD PHOSPHATE 4 MG/ML 1 ML VIAL IV ONE; -FAMOTIDINE 20 MG/2 ML VIAL IV PRN; -HYDROmorphone 0.5 MG/0.5 ML SYRINGE IVP PRN; -LACTATED RINGERS 1,000 ML IV SCH; -ONDANSETRON 4 MG/2 ML VIAL IVP ONE
[2024-03-05 10:03] VITALS: TEMP 97
[2024-03-05] MEDS: LACTATED RINGERS 1,000 ML IV SCH (10:11)
[2024-03-05] MEDS ORDERED: LIDOCAINE 1% INJ 10MG/ML (20 ML MDV) ONE (10:33)
[2024-03-05] MEDS ORDERED: PROPOFOL 10 MG/ML 20 ML VIAL IV ONE (10:33)
--- NOTE | 2024-03-05 10:42 | P.GSHP ---
History of Present Illness H&P Date: 03/05/24 Chief Complaint: Colon cancer screening 63-year-old male here for colonoscopy. Thinks he had his last colonoscopy 10 years ago. Believes that was normal. No family history of colon cancer. No rectal bleeding. 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 2008-DEMENTIA LIKE SYMPTOMS, ANGER ISSUES, SEVERE HEADACHES, PSYCH ISSUES) History of Any Multi-Drug Resistant Organisms: None Reported Past Surgical History: Back Surgery, Orthopedic Surgery Additional Past Surgical History / Comment(s): facial surgery-PLATE IN JAW, r shoulder replacement- had hardware removed d/t infection and had another total replacement, PAIN STIMLATOR IN [id number] TO BRING UNIT CONTROLS; Past Anesthesia/Blood Transfusion Reactions: Previous Problems w/ Anesthesia Additional Past Anesthesia/Blood Transfusion Reaction / Comment(s): WAS GIVEN TOO MUCH ANESTHESIA WITH SHOULDER SX-HAD TO HAVE NARCAN 3 TIMES POST SURGERY-10/2021-DONE AT [facility] Smoking Status: Former smoker - Past Family History Father Family Medical History: Cancer Mother Family Medical History: Cancer Medications and Allergies Home Medications Medication Instructions Recorded Confirmed Type Baclofen [Lioresal] 40 mg PO TID 01/11/16 03/01/24 History HYDROcodone/APAP 10-325MG [[place] 7 - 325 mg PO Q6HR PRN 01/11/16 03/01/24 History 10-325] Lidocaine 5% Patch [Lidoderm 5% 1 patch TOPICAL DAILY PRN 01/11/16 03/01/24 History Patch] Tamsulosin [Flomax] 0.4 mg PO HS 06/16/19 03/01/24 History amLODIPine [Norvasc] 10 mg PO QAM 06/16/19 03/01/24 History Metoprolol Succinate (ER) [Toprol 25 mg PO AC-LUNCH 05/27/22 03/01/24 History Xl] Atorvastatin [Lipitor] 40 mg PO HS 03/01/24 03/01/24 History DULoxetine HCL [Cymbalta] 60 mg PO QAM 03/01/24 03/01/24 History Ezetimibe [Zetia] 10 mg PO AC-LUNCH 03/01/24 03/01/24 History Guaifenesin/Dm/Acetaminophen 1 tab PO BID 03/01/24 03/01/24 History [Coricidin Hbp Max Queb-Oet-Tay] Levocetirizine Dihydrochloride 5 mg PO DAILY 03/01/24 03/01/24 History [Xyzal] Allergies Allergy/AdvReac Type Severity Reaction Status Date / Time morphine AdvReac Vomiting Verified 03/05/24 10:04 Surgical - Exam Vital Signs Temp Pulse Resp BP Pulse Ox 97 F L 118 H 16 145/90 98 03/05/24 10:02 03/05/24 10:02 03/05/24 10:02 03/05/24 10:02 03/05/24 10:02 Physical exam: General: Well-developed, well-nourished HEENT: Normocephalic, sclerae nonicteric Abdomen: Nontender, nondistended Extremities: No edema Neuro: Alert and oriented Assessment and Plan (1) Colon cancer screening Narrative/Plan: Will proceed with colonoscopy at this time. Current Visit: Yes Status: Acute Code(s): Z12.11 - ENCOUNTER FOR SCREENING FOR MALIGNANT NEOPLASM OF COLON SNOMED Code(s): 249081476
--- NOTE | 2024-03-05 10:55 | P.PCN ---
Date of Procedure: 03/05/24 Procedure(s) Performed: PREOPERATIVE DIAGNOSIS: Colon cancer screening POSTOPERATIVE DIAGNOSIS: Sigmoid colon polyp PROCEDURE: Colonoscopy with snare polypectomy ANESTHESIA: MAC SURGEON: Brock Mcdaniel M.D. SPECIMENS: Polyp ENDOSCOPIC PROCEDURE: The patient was placed on the endoscopy table in the left decubitus position. The Olympus colonoscope was inserted into the anus and passed under direct visualization to the base of the cecum. The appendiceal orifice was visualized. From that point the scope was slowly withdrawn inspecting all surfaces carefully. There were no neoplastic inflammatory or polypoid lesions throughout the cecum, ascending, transverse, and descending colon. In the sigmoid a small polyp was seen and removed using the snare with cautery technique. The remainder of the sigmoid and rectum was normal. There was no visible diverticulosis. Digital rectal examination was normal. The patient was taken to the recovery room in stable condition per anesthesia guidelines. RECOMMENDATIONS: Await biopsy results. Will contact patient with next colonoscopy.
[2024-03-05 11:16] VITALS: BP 135/78; PULSE 83; RESP 16
== END 2024-03-05 11:44 | disposition home or self-care (01) ==
LOC: ORWHC2ENDO 09:43
PROVIDERS: ATTEND Surgery
DX: Z12.11 Encounter for screening for malignant neoplasm of colon (principal); D12.5 Benign neoplasm of sigmoid colon; I10 Essential (primary) hypertension; I25.2 Old myocardial infarction; E78.5 Hyperlipidemia, unspecified; Z91.89 Other specified personal risk factors, not elsewhere classified; Z79.899 Other long term (current) drug therapy; Z87.891 Personal history of nicotine dependence; Z87.820 Personal history of traumatic brain injury; Z96.611 Presence of right artificial shoulder joint; Z98.1 Arthrodesis status; Z96.82 Presence of neurostimulator; Z88.5 Allergy status to narcotic agent
CPT/HCPCS: 88305; 45385; J2003; J2704

== ENCOUNTER → 2024-07-19 | Outpatient (CLI) | payer OTHER ==
--- NOTE | 2024-07-19 10:07 | XR ---
EXAMINATION TYPE: XR shoulder limited RT DATE OF EXAM: 07/19/2024 10:00 AM COMPARISON: 05/19/2021 CLINICAL INDICATION: Male, 63 years old with history of G89.29 chronic pain; PHH, pain TECHNIQUE: XR shoulder limited RT; examined in AP, internally rotated and scapular Y projections. FINDINGS: Shoulder arthroplasty with hardware intact. Subcutaneous lucencies compatible with recent surgery. No evidence for fracture. Hardware appears in tact The remaining portions of the visualized chest are unremarkable. Fixation changes spine best visualized and intact. IMPRESSION: Post shoulder arthroplasty revision, no evidence for immediate postop complication. [facility], , 07/19/2024 10:05 AM
== END | disposition home or self-care (01) ==
LOC: RADXRMAIN 09:48
PROVIDERS: ATTEND Physical Medicine & Rehabilitation
DX: G89.29 Other chronic pain (principal); Z96.611 Presence of right artificial shoulder joint